=== PATIENT | male | born 1955 | race Caucasian/White ===

== ENCOUNTER → 2017-09-09 | Outpatient (CLI) | payer BC ==
[~2017-09-09] MED LIST: ASPI-757 PO; CAR3.125 PO; CLOP75TA43 PO; EZET10TA41 PO; FAMO20TA28 PO; NIAC500C12 PO; OXYC-865 PO; RAMI2.5C42 PO; ROS10 PO
== END ==
LOC: LAB 06:23
PROVIDERS: ATTEND Internal Medicine Cardiovascular Disease
DX: I10 Essential (primary) hypertension (principal); I25.10 Atherosclerotic heart disease of native coronary artery without angina pectoris; E78.5 Hyperlipidemia, unspecified
CPT/HCPCS: 36415; 82040; 82247; 82310; 82374; 82435; 82465; 82565; 82947; 83718; 84075; 84132; 84155; 84295; 84450; 84460; 84478; 84520

== ENCOUNTER → 2017-09-19 | Outpatient (CLI) | payer BC | LOC: LAB 08:42 | PROVIDERS: ATTEND Internal Medicine Cardiovascular Disease | DX: I25.10 Atherosclerotic heart disease of native coronary artery without angina pectoris (principal); E78.5 Hyperlipidemia, unspecified; I10 Essential (primary) hypertension | CPT/HCPCS: 36415; 84443; 85027 ==

== ENCOUNTER → 2017-10-06 | Outpatient (CLI) | payer BC | LOC: LAB 08:41 | PROVIDERS: ATTEND Internal Medicine Cardiovascular Disease | DX: I25.10 Atherosclerotic heart disease of native coronary artery without angina pectoris (principal); E78.5 Hyperlipidemia, unspecified; I10 Essential (primary) hypertension; I50.22 Chronic systolic (congestive) heart failure | CPT/HCPCS: 36415; 82310; 82374; 82435; 82565; 82947; 84132; 84295; 84520 ==

== ENCOUNTER → 2017-12-25 | Outpatient (CLI) | payer BC | LOC: LAB 14:14 | PROVIDERS: ATTEND Internal Medicine Cardiovascular Disease | DX: I25.10 Atherosclerotic heart disease of native coronary artery without angina pectoris (principal); I10 Essential (primary) hypertension; E78.5 Hyperlipidemia, unspecified; I50.22 Chronic systolic (congestive) heart failure | CPT/HCPCS: 36415; 82310; 82374; 82435; 82565; 82947; 83880; 84132; 84295; 84520 ==

== ENCOUNTER → 2018-02-03 | Outpatient (CLI) | payer BC ==
[~2018-02-03] MED LIST changes: -RAMI2.5C42 PO; +RAMI2.5C43 PO
== END ==
LOC: LAB 08:30
PROVIDERS: ATTEND Internal Medicine Cardiovascular Disease
DX: R00.2 Palpitations (principal); E78.5 Hyperlipidemia, unspecified; I25.10 Atherosclerotic heart disease of native coronary artery without angina pectoris; I50.22 Chronic systolic (congestive) heart failure
CPT/HCPCS: 36415; 82310; 82374; 82435; 82565; 82947; 83880; 84132; 84295; 84520

== ENCOUNTER → 2018-04-08 | Outpatient (CLI) | payer MEDICARE | LOC: LAB 08:16 | PROVIDERS: ATTEND Internal Medicine Cardiovascular Disease | DX: I25.10 Atherosclerotic heart disease of native coronary artery without angina pectoris (principal); E78.5 Hyperlipidemia, unspecified; I50.22 Chronic systolic (congestive) heart failure; I10 Essential (primary) hypertension | CPT/HCPCS: 36415; 82310; 82374; 82435; 82565; 82947; 83880; 84132; 84295; 84520 ==

== ENCOUNTER → 2018-05-11 | Outpatient (CLI) | payer MEDICARE | LOC: US 02:23 | PROVIDERS: ATTEND Internal Medicine Cardiovascular Disease | DX: I50.1 Left ventricular failure, unspecified (principal); R29.898 Other symptoms and signs involving the musculoskeletal system; I34.0 Nonrheumatic mitral (valve) insufficiency; I51.7 Cardiomegaly | CPT/HCPCS: C8929; Q9957 ==

== ENCOUNTER → 2018-06-11 | Outpatient (CLI) | payer MEDICARE | LOC: LAB 08:11 | PROVIDERS: ATTEND Internal Medicine Cardiovascular Disease | DX: E78.2 Mixed hyperlipidemia (principal); I25.10 Atherosclerotic heart disease of native coronary artery without angina pectoris; I50.22 Chronic systolic (congestive) heart failure; R00.2 Palpitations | CPT/HCPCS: 36415; 82310; 82374; 82435; 82565; 82947; 84132; 84295; 84520 ==

== ENCOUNTER → 2018-06-16 | Outpatient (CLI) | payer MEDICARE | LOC: LAB 13:10 | PROVIDERS: ATTEND Internal Medicine Clinical Cardiac Electrophysiology | DX: I49.3 Ventricular premature depolarization (principal) | CPT/HCPCS: 36415; 82040; 82247; 82310; 82374; 82435; 82565; 82947; 84075; 84132; 84155; 84295; 84443; 84450; 84460; 84520 ==

== ENCOUNTER → 2018-07-01 | Outpatient (CLI) | payer MEDICARE ==
--- NOTE | 2018-07-02 15:24 | RT HOLTER TEST ---
FACILITY: [facility] - [place] PATIENT NAME: DEVANTE BRODERICK : [id number] MR: [id number] V: [id number] EXAM DATE: ORDERING PHYSICIAN: BRANDON CRUZ TECHNOLOGIST: IBRAHIMA Hook-up date: 2018-07-01 10:58:00 Duration: 25:20:00 Test Indications: PVCs Medications: 17511 QRS complexes 675 Ventricular ectopics which represent <1 % of total QRS comp. 104 Supraventricular ectopics which represent <1 % of total QRS comp. * Paced QRS complexes which represent % of total QRS comp. VENTRICULAR ECTOPY 665 Isolated 0 Bigeminal Cycles 3 Couplets 1 Runs 4 Beats in Runs 4 Beats LONGEST at 119 BPM at 23:18:01 2018-07-01 4 Beats FASTEST at 119 BPM at 23:18:01 2018-07-01 SUPRAVENTRICULAR ECTOPY 104 Isolated 0 Couplets 0 Runs 0 Beats in Runs * Beats LONGEST at * BPM at :: -- * Beats FASTEST at * BPM at :: -- HEART RATES 48 MIN at 01:54:57 2018-07-02 64 AVG 118 MAX at 17:01:30 2018-07-01 LONGEST RR 1.408 secs at 02:17:13 2018-07-02 S-T LEVELS Channel 1 -12.800 mm MIN at 10:58:00 2018-07-01 -12.800 mm MAX at 10:58:00 2018-07-01 Channel 2 -12.800 mm MIN at 10:58:00 2018-07-01 -12.800 mm MAX at 10:58:00 2018-07-01 Channel 3 -12.800 mm MIN at 10:58:00 2018-07-01 -12.800 mm MAX at 10:58:00 2018-07-01 Occasional supraventricular ectopy. No couplets, triplets, or runs were recorded. Occasional ventricular ectopy with a few couplets and one five (5) beat run of ventricular tachycardi a. Occasional trigeminy was also noted. Sinus bradycardia was noted during usual sleeping hours and sinus tachycardia during usual waking brenna rs. No pauses of more than two (2.0) seconds were recorded. Confirmed by JUDE SWANN ([id number] on 07/02/2018 3:24:15 PM Referred By: Overread By: JUDE SWANN
== END ==
LOC: RESP 00:55
PROVIDERS: ATTEND Internal Medicine Clinical Cardiac Electrophysiology
DX: I49.3 Ventricular premature depolarization (principal); J44.9 Chronic obstructive pulmonary disease, unspecified
CPT/HCPCS: 93225; 93226; 94060; 94726; 94729

== ENCOUNTER → 2018-07-04 | Outpatient (CLI) | payer MEDICARE | LOC: RESP 20:48 | PROVIDERS: ATTEND Internal Medicine Clinical Cardiac Electrophysiology | DX: G47.33 Obstructive sleep apnea (adult) (pediatric) (principal); G47.61 Periodic limb movement disorder; G47.36 Sleep related hypoventilation in conditions classified elsewhere ==

== ENCOUNTER → 2018-07-29 | Outpatient (CLI) | payer MEDICARE | LOC: US 07:14 | PROVIDERS: ATTEND Internal Medicine Clinical Cardiac Electrophysiology | DX: I51.7 Cardiomegaly (principal) | CPT/HCPCS: C8929; Q9957; C8924 ==

== ENCOUNTER → 2018-09-18 | Outpatient (CLI) | payer MEDICARE, OTHER ==
[~2018-09-18] MED LIST changes: -ROS10 PO; +ROSU10TA PO
== END ==
LOC: RESP 20:50
PROVIDERS: ATTEND Internal Medicine
DX: G47.33 Obstructive sleep apnea (adult) (pediatric) (principal); G47.36 Sleep related hypoventilation in conditions classified elsewhere; G47.61 Periodic limb movement disorder

== ENCOUNTER → 2018-09-29 | Outpatient (CLI) | payer MEDICARE, OTHER ==
--- NOTE | 2018-09-29 11:27 | RADIOLOGY IMAGING REPORT ---
FACILITY: [facility] - [place] PATIENT NAME: Jw Wang : 1955 MR: [id number] V: [id number] EXAM DATE: ORDERING PHYSICIAN: BRANDON CRUZ TECHNOLOGIST: Location: Patient: Jw Wang : 1955 Visit/Account:[id number] Date of Sevice: 09/29/2018 2 VIEWS CHEST INDICATION: Shortness of breath x3 months. COMPARISON: To 04/14/2016. FINDINGS: Heart size within normal limits. 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 Moderate calcifications wi thin the aortic knob. There is no focal infiltrate or lobar consolidation. Slight hyperexpansion the lungs with chronic i nterstitial changes. Mild scarring within the left lower lobe. There is no pneumothorax or pleural effusion. IMPRESSION: 1. No acute cardiopulmonary process. 2. Stable chronic changes. Report Dictated By: Prakash Bobo MD at 09/29/2018 11:21 AM Report E-Signed By: Prakash Bobo MD at 09/29/2018 11:23 AM WSN:[email or web address]
== END ==
LOC: RAD 10:01
PROVIDERS: ATTEND Internal Medicine Clinical Cardiac Electrophysiology
DX: R91.8 Other nonspecific abnormal finding of lung field (principal); Z98.890 Other specified postprocedural states
CPT/HCPCS: 71046

== ENCOUNTER → 2018-12-17 | Outpatient (CLI) | payer MEDICARE, OTHER ==
--- NOTE | 2018-12-22 00:56 | RT HOLTER TEST ---
FACILITY: [facility] - [place] PATIENT NAME: DEVANTE BRODERICK : [id number] MR: [id number] V: [id number] EXAM DATE: ORDERING PHYSICIAN: BRANDON CRUZ TECHNOLOGIST: Hook-up date: 2018-12-17 10:46:00 Duration: 24:03:00 Test Indications: PVC'S Medications: ASPIRIN ZETIA COREG APIXABAN CRESTOR RAMIPRIL ANORA 61227 QRS complexes 3531 Ventricular ectopics which represent 3 % of total QRS comp. 11 Supraventricular ectopics which represent <1 % of total QRS comp. * Paced QRS complexes which represent % of total QRS comp. VENTRICULAR ECTOPY 3522 Isolated 0 Bigeminal Cycles 3 Couplets 1 Runs 3 Beats in Runs 3 Beats LONGEST at 69 BPM at 13:26:42 2018-12-17 3 Beats FASTEST at 69 BPM at 13:26:42 2018-12-17 SUPRAVENTRICULAR ECTOPY 11 Isolated 0 Couplets 0 Runs 0 Beats in Runs * Beats LONGEST at * BPM at :: -- * Beats FASTEST at * BPM at :: -- HEART RATES 45 MIN at 02:28:50 2018-12-18 66 AVG 102 MAX at 18:50:57 2018-12-17 LONGEST RR 1.592 secs at 23:18:51 2018-12-17 S-T LEVELS Channel 1 -12.800 mm MIN at 10:46:00 2018-12-17 -12.800 mm MAX at 10:46:00 2018-12-17 Channel 2 -12.800 mm MIN at 10:46:00 2018-12-17 -12.800 mm MAX at 10:46:00 2018-12-17 Channel 3 -12.800 mm MIN at 10:46:00 2018-12-17 -12.800 mm MAX at 10:46:00 2018-12-17 Sinus rhythym throughout study. Frequent PVC occuring in isolation. Positive Holter study. Confirmed by Jamil Breaux ([id number]) on 12/22/2018 12:52:07 AM Referred By: Overread By: Jamil Segundo
== END ==
LOC: RESP 10:35
PROVIDERS: ATTEND Internal Medicine Clinical Cardiac Electrophysiology
DX: I49.3 Ventricular premature depolarization (principal)
CPT/HCPCS: 93225; 93226

== ENCOUNTER → 2018-12-28 | Outpatient (CLI) | payer MEDICARE, OTHER | LOC: LAB 08:23 | PROVIDERS: ATTEND Internal Medicine Cardiovascular Disease | DX: I10 Essential (primary) hypertension (principal); I25.10 Atherosclerotic heart disease of native coronary artery without angina pectoris; I50.22 Chronic systolic (congestive) heart failure | CPT/HCPCS: 36415; 82310; 82374; 82435; 82565; 82947; 83880; 84132; 84295; 84520 ==